=== PATIENT | female | born 1995 | race Two or more races ===

== ENCOUNTER 2023-05-15 09:48 | Observation (INO) | payer SELFPAY ==
[~2023-05-15] VITALS: Ht 180.3 cm; Wt 85.0 kg
[2023-05-15 10:04] VITALS: BP 116/67; PULSE 98; RESP 18; O2SAT 98
== END 2023-05-15 10:50 | disposition left against medical advice (07) ==
LOC: ER 09:48 → LDRP 10:08 → UNDODISOB 10:50
PROVIDERS: ADMIT Obstetrics & Gynecology; ATTEND Obstetrics & Gynecology
DX: O26.892 Other specified pregnancy related conditions, second trimester (principal); R10.2 Pelvic and perineal pain; Z3A.23 23 weeks gestation of pregnancy
CPT/HCPCS: 99284; G0378